=== PATIENT | female | born 1950 | race Caucasian/White ===

== ENCOUNTER 2020-02-16 08:02 | Outpatient (CLI) | payer MEDICARE, SELFPAY ==
--- NOTE | ~2020-02-16 | XR_ITS ---
EXAMINATION: XR barium swallow DATE: 02/16/2020 08:47 INDICATION: Dysphagia, unspecified. TECHNIQUE: The patient drank thick barium, gas-producing crystals, and thin barium. Fluoroscopy of th e hypopharynx and esophagus was performed. Fluoroscopy exposure time was 0.8 minutes. The total numbe r of images was 728. The dose-area product was 3.473 Gy-cm^2. COMPARISON: None. FINDINGS: There is no mass or stricture of the esophagus. There is decreased primary and secondary es ophageal peristalsis. There is no hiatal hernia. There was no gastroesophageal reflux with provocativ e maneuvers. IMPRESSION: 1. Mild esophageal dysmotility. Reviewed, dictated and finalized at location A.
== END 2020-02-16 08:03 | disposition home or self-care (01) ==
PROVIDERS: PCP Family Medicine; Visit Provider Otolaryngology
DX: R13.10 Dysphagia, unspecified (principal)
CPT/HCPCS: 74220

== ENCOUNTER 2020-03-21 10:37 | Outpatient (CLI) | payer MEDICARE, SELFPAY ==
--- NOTE | ~2020-03-21 | XR_ITS ---
EXAMINATION: XR barium swallow modified DATE: 03/21/2020 11:24 INDICATION: Dysphagia. TECHNIQUE: Modified barium esophagram was performed by myself to administered fluoroscopy, in conjun ction with speech pathologist who administered barium in varying consistencies as per speech patholog ist documentation. This was recorded on tape. A single fluoroscopic spot image was recorded. The DAP for this procedure was 1.2 Gycm2. Fluoroscopy exposure time was 1.5 minutes. FINDINGS: Oral stage: Adequate function. Pharyngeal phase: Adequate function. Laryngeal penetration: None. Aspiration: None. Laryngeal sensitivity: Present. IMPRESSION: Normal modified barium swallow. Please refer to speech pathologist findings and specific feeding recommendations. Reviewed, dictated and finalized at location A.
--- NOTE | 2020-03-21 17:26 | STOPEVAL ---
OUTPATIENT MODIFIED BARIUM SWALLOW: Thank you for referring Babita Olivarez to [facility] [place]. Attending Provider: Daljit Yoon MD Referring Provider: GM Outpatient Evaluation: KATARZYNA Start: 03/21/20 17:18 Freq: Status: Active Protocol: Document 03/21/20 11:00 BECHERERT (Rec: 03/21/20 17:25 BECHERERT [email or web address]) Therapy Assessment Status Assessment Status Assessment Status Evaluation Outpatient Past Medical History Past Medical History Source of Past Medical History Patient Neurological History Hx Epilepsy Yes Cardiovascular History Hx Cardiac Disorders No Significant History Respiratory History Hx Respiratory Disorders No Significant History Gastrointestinal History Hx Gastroesophageal Reflux Disease Yes Genitourinary History Hx Genitourinary Disorders No Significant History Musculoskeletal History Hx Musculoskeletal Disorders No Significant History Hematological History Hx Anemia Yes Endocrine History Hx Endocrine Disorders No Significant History HEENT History Hx HEENT Disorders No Significant History Integumentary History Hx Skin Disorders No Significant History Reproductive History Hx Reproductive Disorders No Significant History Psychosocial History Hx Psychiatric Disorders No Significant History Pain History History of Any Previous or Ongoing No Significant History Instance of Pain Anesthesia History Hx Anesthesia Reactions No Significant History Evaluation Information Problem Diagnosis pt c/o vocal changes after an endoscopy last year (2018) Subjective Information Pt reports being seen ENT but Query Text:As Reported By Patient/ states that she was told her Family vocal cords were WFL Pain Assessment Timing of Pain Assessment Timing of Pain Assessment Assessment Self Report Self Report Pain Level 0 Pain Scale Pain Scale Used Numeric (1 - 10) Pain Score Pain Score 0: Self Report Modified Barium Swallow Evaluation Recent Swallowing History Reports Dysphagia Its not my swallowing; its my voice Onset of Dysphagia July 2019 History of Dysphagia No Other Factors Impacting Dysphagia Laryngeal Trauma History of Pneumonia No Reported Difficult Consistencies Unable to Identify Intake Method Prior to Swallow Oral Evaluation Diet Prior to Swallow Evaluation Regular, Level 7 Liquid Consistency Prior to Swallow Thin (0) Evaluation Consistency Thin Uncontrolled 1 Other Amount cup and straw Oral Preparatory Symptoms None Oral Phase Symptoms None Pharyngeal Phase Symptoms None Severity of Vallecula
== END 2020-03-21 10:38 | disposition home or self-care (01) ==
PROVIDERS: PCP Family Medicine; Visit Provider Internal Medicine Gastroenterology
DX: R13.10 Dysphagia, unspecified (principal)
CPT/HCPCS: 92611

== ENCOUNTER 2020-03-30 13:40 | Outpatient (CLI) | payer MEDICARE, SELFPAY ==
[2020-03-30 14:53] LABS: Alanine Aminotransferase 13 U/L (4-35); Albumin Level 4.4 g/dL (3.5-5.1); Alkaline Phosphatase 130 U/L (38-126); Aspartate Amino Transferase 20 U/L (14-36); Bilirubin,Total 0.3 mg/dL (0.2-1.3); Blood Urea Nitrogen 41 mg/dL (7-17); Calcium 9.5 mg/dL (8.4-10.2); Carbon Dioxide 25 mmol/L (22-30); Chloride 103 mmol/L (98-107); Cholesterol 160 mg/dL (0-200); Estimated Glomerular Filt Rate 32; Glucose 114 mg/dL (65-105); HDL Direct 66 mg/dL; Potassium 4.9 mmol/L (3.4-5.0); Sodium 137 mmol/L (137-145); Triglycerides 109 mg/dL (<150)
[2020-03-30 14:54] LABS: Hemoglobin A1C 5.9 % (<5.7)
[2020-03-30 15:04] LABS: LDL Cholesterol Direct 72 mg/dL
[2020-03-30 15:09] LABS: Vitamin D 25 Hydroxy 57.9 ng/mL
== END 2020-03-30 13:41 | disposition home or self-care (01) ==
PROVIDERS: PCP Family Medicine; Visit Provider Internal Medicine Hematology & Oncology
DX: E03.9 Hypothyroidism, unspecified (principal); E78.2 Mixed hyperlipidemia; D63.1 Anemia in chronic kidney disease; N18.4 Chronic kidney disease, stage 4 (severe); I12.9 Hypertensive chronic kidney disease with stage 1 through stage 4 chronic kidney disease, or unspecified chronic kidney disease
CPT/HCPCS: 36415; 80053; 80061; 82306; 83036; 84443

== ENCOUNTER 2020-07-10 10:44 | Outpatient (CLI) | payer MEDICARE, SELFPAY ==
--- NOTE | ~2020-07-10 | US_ITS ---
EXAMINATION: US soft tissue head and neck DATE: 07/10/2020 11:15 INDICATION: Palpable nodule at the suprasternal notch which is only palpable in the upright position. TECHNIQUE: Multiple grayscale and Doppler ultrasound images of the region of concern at the supraster nal anterior neck were obtained. COMPARISON: None FINDINGS/IMPRESSION: No abnormal masses or fluid collections identified at the region of concern. No correlate identified for the reported palpable abnormality. Reviewed, dictated and finalized at location A.
== END 2020-07-10 10:45 | disposition home or self-care (01) ==
PROVIDERS: PCP Family Medicine; Visit Provider Internal Medicine Hematology & Oncology
DX: R22.1 Localized swelling, mass and lump, neck (principal)
CPT/HCPCS: 76536

== ENCOUNTER 2020-07-25 15:23 | Outpatient (CLI) | payer MEDICARE, SELFPAY ==
--- NOTE | ~2020-07-25 | CT_ITS ---
EXAMINATION:CT chest w con DATE: 07/25/2020 16:00 INDICATION: Dysphagia. TECHNIQUE: Computed tomography (CT) of the chest was performed with 75 mL Omnipaque 350 intravenous c ontrast. Automated exposure control and iterative reconstruction technique were employed. The dose-le ngth product (DLP) was 223.69 mGy-cm. COMPARISON: Esophagram 02/16/2020 FINDINGS: The lung volumes are small with relative mild elevation of right hemidiaphragm. There is mi ld atelectasis bilaterally. Calcified right lung nodules and calcified right hilar lymph nodes are co nsistent with old granulomatous disease. No pleural effusion. The heart size is normal. No pericardia l effusion. There is levoscoliosis of cervicothoracic spine and dextroscoliosis of thoracolumbar spin e. IMPRESSION: 1. Small lung volumes with mild atelectasis. Reviewed, dictated and finalized at location A.
[2020-07-25 15:48] LABS: Estimated Glomerular Filt Rate 37
== END 2020-07-25 15:24 | disposition home or self-care (01) ==
PROVIDERS: PCP Family Medicine; Visit Provider Internal Medicine Hematology & Oncology
DX: R13.10 Dysphagia, unspecified (principal); R91.8 Other nonspecific abnormal finding of lung field
CPT/HCPCS: 71260; Q9967

== ENCOUNTER 2020-07-31 13:29 | Outpatient (CLI) | payer MEDICARE, SELFPAY ==
--- NOTE | ~2020-07-31 | US_ITS ---
EXAMINATION: US retroperitoneal comp DATE: 07/31/2020 15:09 INDICATION: Stage IV chronic kidney disease TECHNIQUE: Multiple ultrasound grayscale images of the kidneys were obtained. COMPARISON: None. FINDINGS: The right kidney measures 9.3 x 4.8 x 6.1 cm. The left kidney measures 9.3 x 4.8 x 3.7 cm. The kidney s demonstrate normal echogenicity. There is no hydronephrosis in either kidney. No stones identified . The bladder is normal. IMPRESSION: 1. Normal kidneys without hydronephrosis. Reviewed, dictated and finalized at location B.
== END 2020-07-31 13:30 | disposition home or self-care (01) ==
PROVIDERS: PCP Family Medicine; Visit Provider Internal Medicine Nephrology
DX: N18.4 Chronic kidney disease, stage 4 (severe) (principal); D63.1 Anemia in chronic kidney disease
CPT/HCPCS: 76770

== ENCOUNTER 2020-08-03 12:33 | Outpatient (CLI) | payer MEDICARE, SELFPAY ==
[2020-08-03 16:13] LABS: Albumin Level 4.3 g/dL (3.5-5.1); Anion Gap 12 mmol/L (8-16); Blood Urea Nitrogen 34 mg/dL (7-17); Calcium 9.6 mg/dL (8.4-10.2); Carbon Dioxide 28 mmol/L (22-30); Chloride 101 mmol/L (98-107); Estimated Glomerular Filt Rate 30; Glucose 145 mg/dL (65-105); Phosphorus 3.5 mg/dL (2.5-4.5); Potassium 4.2 mmol/L (3.4-5.0); Sodium 141 mmol/L (137-145)
[2020-08-03 16:19] LABS: Complement C3 133 mg/dL (88-165)
[2020-08-08 23:26] LABS: Albumin 3.8 g/dL (3.8-4.8); Alpha 1 Globulin 0.4 g/dL (0.2-0.3); Beta 1 Globulin 0.5 g/dL (0.4-0.6); Gamma Globulin 0.9 g/dL (0.8-1.7)
[2020-08-09 10:53] LABS: ANCA Screen Negative (Negative)
[2020-08-09 13:29] LABS: Anti Glomerular Basement Memb <1.0 AI (<1.0)
[2020-08-29 17:11] LABS: Creatinine Urine 102.8 mg/dL; Total Protein Urine Random 20 mg/dL
[2020-08-29 17:12] LABS: Sodium Urine Random 103 meq/L
[2020-09-04 15:58] LABS: Chloride Rand Ur 84 mmol/L (32-290); Chloride/Creatinine Rand Ur 83 (38-318); Creatinine Random Urine 101 mg/dL (20-275)
[2020-09-06 20:51] LABS: Creatinine, Random Urine 101 mg/dL (20-275); Total Protein/Creatinine Ratio 297 mg/g creat (21-161)
== END 2020-08-03 12:34 | disposition home or self-care (01) ==
PROVIDERS: PCP Family Medicine; Visit Provider Internal Medicine Nephrology
DX: N18.4 Chronic kidney disease, stage 4 (severe) (principal); D63.1 Anemia in chronic kidney disease; I12.9 Hypertensive chronic kidney disease with stage 1 through stage 4 chronic kidney disease, or unspecified chronic kidney disease
CPT/HCPCS: 36415; 80069; 82436; 82570; 83520; 84155; 84156; 84165; 84166; 84300; 85999; 86021; 86038; 86160; 86225

== ENCOUNTER 2020-12-02 16:13 | Observation (INO) | payer MEDICARE, SELFPAY ==
[2020-12-02] VITALS (8 sets, daily range): BP systolic 131–166; BP diastolic 65–107; PULSE 96–113; RESP 14–22; TEMP 36–36.5; O2SAT 92–96
--- NOTE | ~2020-12-02 | CT_ITS ---
EXAMINATION: CT abdomen pelvis w con DATE: 12/02/2020 17:48 INDICATION: Generalized abdominal pain. Nausea and vomiting. TECHNIQUE: Computed tomography (CT) of the abdomen and pelvis was performed with 100 mL Omnipaque 350 intravenous contrast. Automated exposure control and iterative reconstruction technique were employe d. The dose-length product was 415.69 mGy-cm. COMPARISON: None. FINDINGS: The visualized portions of the lung bases demonstrate mild atelectasis. No pleural effusion . The heart size is normal. There are coronary artery calcifications. No pericardial effusion. The li doris and gallbladder are normal. Calcifications in the spleen are consistent with old granulomatous di sease. There is a gastrostomy tube in expected position. The pancreas and adrenal glands are normal. There is cortical thinning of the kidneys. There is diverticulosis of the colon without evidence of d iverticulitis. The appendix is normal. There are no pathologically enlarged lymph nodes. There is no free intraperitoneal fluid. There is lumbar levoscoliosis and severe spondylosis. IMPRESSION: 1. No etiology for the patient's symptoms. Reviewed, dictated and finalized at location A. ET [employer]
--- NOTE | 2020-12-02 16:21 | ED.NAVMDI ---
HPI - Nausea/Vomiting/Diarrhea General Chief complaint: Nausea/Vomiting/Diarrhea Stated complaint: vomiting/diarrhea/als Time Seen by Provider: 12/02/20 16:21 History of Present Illness HPI Narrative: 70 yo female w/ h/o ALS presents to the ED for nausea and vomiting. She is GI tube dependent due to ALS. For the last week she has had difficulty with tolerating feeds. She has also had copious watery diarrhea. She does report mild diffuse abdominal pain as well. Related Data Home Medications Medication Instructions Recorded Confirmed aspirin 81 mg tablet,delayed 81 mg PO DAILY 07/31/20 10/01/20 release cholecalciferol (vitamin D3) 1,250 1,250 mcg PO WEEKLY 07/31/20 10/01/20 mcg (50,000 unit) capsule cyanocobalamin (vitamin B-12) 100 100 mcg PO DAILY 07/31/20 10/01/20 mcg tablet docusate sodium 100 mg capsule 100 mg PO BID 07/31/20 10/01/20 ferrous sulfate 325 mg (65 mg 325 mg PO DAILY 07/31/20 10/01/20 iron) tablet polyethylene glycol 3350 17 17 g PO DAILY 07/31/20 10/01/20 gram/dose oral powder Allergies Allergy/AdvReac Type Severity Reaction Status Date / Time No Known Allergies Allergy Verified 12/02/20 16:19 Review of Systems Constitutional: Constitutional: Reports chills and Denies fever(s) Eyes: Eyes: Reports no additional eye complaints Cardiovascular: Cardiovascular: Denies chest pain Respiratory: Respiratory: Denies dyspnea Gastrointestinal: Gastrointestinal: Reports abdominal pain, Reports diarrhea, Reports nausea and Reports vomiting Genitourinary: Genitourinary: Denies dysuria Neurologic: Denies numbness and Reports weakness PMFSH Past Medical History Medical History (Updated 12/02/20 @ 18:46 by Frandy Nieves MD) Primary osteoarthritis, unspecified site Seasonal allergic rhinitis due to pollen Family History Family History Father Family history of glaucoma Family history of cardiovascular disease Malignant neoplasm of prostate Other Depression Social History Social History Smoking status: Never smoker Alcohol intake: current Spiritual care concerns: No Exam Const: General: no acute distress, alert and ill appearing chronically HENMT: Mouth: Yes dry mucous membranes Eyes: Pupils: Equal, round and reactive pupils present Resp: Effort & Inspection: normal respiratory effort Auscultation: clear to auscultation bilaterally Cardio: Rate: regular rate Rhythm: regular rhythm GI: Inspection: non-distended GI Palp: Yes Soft to palpation, Yes Tenderness to palpation present (GI) (mild), No Guarding due to palpation present (GI) and No Rebound tenderness present Skin: General skin exam: normal color Neuro: General: moves all extremities and CN's II-XI intact bilaterally Other: symmetrical weakness of all extremities. Stable gait Extrem: General: no edema Course Vital Signs Vital signs: Vital Signs Temperature 36.5 C 12/02/20 16:16 Pulse Rate 105 H 12/02/20 16:16 Respiratory Rate 18 12/02/20 16:16 Blood Pressure 131/75 12/02/20 16:16 Pulse Oximetry 95 12/02/20 16:16 Temperature 36.5 C 12/02/20 16:16 Pulse Rate 100 12/02/20 18:22 Respiratory Rate 22 H 12/02/20 18:22 Blood Pressure 166/107 H 12/02/20 18:22 Pulse Oximetry 93 12/02/20 18:22 MDM - Nausea/Vomiting/Diarrhea Differential Diagnosis Differential diagnosis: Likely gastroenteritis and other (SBO, UTI, colitis, COVID-19, constipation) Medical Records Attestation: I reviewed the patient's medical records. Lab Data Attestation: I reviewed the patient's lab results. Result diagrams: 12/02/20 16:49 12/02/20 16:49 Labs: Lab Results 12/02/20 12/02/20 12/02/20 Range/Units 16:40 16:49 16:49 WBC 7.9 (4.5-10.0) K/mm3 RBC 3.95 L (4.2-5.4) M/mm3 Hgb 13.0 (12.0-15.0) g/dL Hct 39.5 (37.0-47.0) % MCV
[2020-12-02] MEDS: ONDANSETRON INJ 4 MG/2 ML VIAL IV PUSH ×2 (16:45→21:31)
[2020-12-02] MEDS: SODIUM CHLORIDE 0.9% IV 500 ML 999 ML IV CONT (16:45)
[2020-12-02 16:57] LABS: Basophils Absolute Auto 0.1 K/mm3 (0.0-0.1); Eosinophils Percent Auto 0.5 % (0-4.4); Hematocrit 39.5 % (37.0-47.0); Immature Granulocyte Absolute 0.02 K/mm3 (0.00-0.031); Immature Granulocyte Percent A 0.3 % (0-0.5); Lymphocytes Absolute Auto 1.51 K/mm3 (0.9-3.2); Mean Corpuscular HGB Conc 32.9 g/dl (32-36); Mean Corpuscular Hemoglobin 32.9 pg (26-34); Mean Platelet Volume 9.4 fl (7.4-10.4); Monocytes Absolute Auto 0.6 K/mm3 (0.1-0.6); Monocytes Percent Auto 7.3 % (2.6-8.5); Neutrophils Absolute Auto 5.7 K/mm3 (1.3-6.7); Neutrophils Percent Auto 71.9 % (45.5-73.1); Platelet Count Result 326 k/mm3 (150-375); Red Blood Count 3.95 M/mm3 (4.2-5.4); Red Cell Distribution Width 12.2 % (11.5-14.5); White Blood Count 7.9 K/mm3 (4.5-10.0)
[2020-12-02 17:09] LABS: Add Urine Microscopic? YES; Appearance Urine Cloudy (Clear); Bacteria Urine 4+ /hpf; Bilirubin Urine Negative (Negative); Color Urine Yellow (Yellow); Glucose Urine UA Negative (Negative); Hyaline Casts Urine 30-49 /lpf; Ketones Urine Negative (Negative); Leukocyte Esterase Ur 3+ LEU/UL (Negative); Mucus Urine Few /lpf; Nitrate Urine Positive (Negative); Protein Urine 1+ mg/dL (Negative); Specific Grav Ur 1.021 (1.001-1.035); Squamous Epithelial Cell Urine Many /hpf (Few); WBC Urine 31-50 /hpf
[2020-12-02 17:10] LABS: Alanine Aminotransferase 17 U/L (4-35); Albumin Level 4.2 g/dL (3.5-5.1); Alkaline Phosphatase 114 U/L (38-126); Aspartate Amino Transferase 29 U/L (14-36); Bilirubin,Total 0.6 mg/dL (0.2-1.3); Blood Urea Nitrogen 43 mg/dL (7-17); Calcium 9.7 mg/dL (8.4-10.2); Carbon Dioxide > 40 mmol/L (22-30); Chloride 87 mmol/L (98-107); Estimated CRCL calculation 25 ml/min; Estimated Glomerular Filt Rate 30; Glucose 124 mg/dL (65-105); Lipase 252 U/L (23-300); Potassium 2.5 mmol/L (3.4-5.0); Sodium 138 mmol/L (137-145)
[2020-12-02 17:20] LABS: Blood Urine Negative (Negative)
[2020-12-02 17:58] LABS: Magnesium 2.2 mg/dL (1.6-2.3)
--- NOTE | 2020-12-02 20:35 | ADMGEN ---
This patient, Babita Olivarez, was admitted to Medical Room 341-01. Patient/family oriented to hospital policies and general routines including ID bracelet, bed and alarms, visiting hours, pain management, procedures, bathroom and other care routines, personal items, smoking policy, room service/diet, and visiting hours. Information on how to activate the Rapid Response Team has been discussed. Patient/Family are encouraged to report perceived risks to care and to ask questions if they do not understand what they are told or what they should do.
[2020-12-02] MEDS: LACTATED RINGERS 1,000 ML 125 ML IV CONT (23:06)
[2020-12-03] VITALS (12 sets, daily range): BP systolic 118–132; BP diastolic 66–78; PULSE 68–102; RESP 14–18; TEMP 35.8–36.7; O2SAT 93–100; BMI 28.2
[2020-12-03] MEDS: levETIRAcetam 500 MG TABLET XX ×3 (00:46→21:19)
[2020-12-03 00:47] LABS: Blood Urea Nitrogen 40 mg/dL (7-17); Calcium 8.2 mg/dL (8.4-10.2); Carbon Dioxide > 40 mmol/L (22-30); Chloride 90 mmol/L (98-107); Estimated CRCL calculation 30 ml/min; Estimated Glomerular Filt Rate 37; Glucose 111 mg/dL (65-105); Magnesium 2.1 mg/dL (1.6-2.3); Potassium 2.9 mmol/L (3.4-5.0); Sodium 137 mmol/L (137-145)
[2020-12-03] MEDS: ONDANSETRON INJ 4 MG/2 ML VIAL IV PUSH ×2 (06:04→21:19)
[2020-12-03] MEDS: SERTRALINE HCL 50 MG TABLET FEED TUBE (08:16)
[2020-12-03 08:44] LABS: Basophils Absolute Auto 0.1 K/mm3 (0.0-0.1); Basophils Percent Auto 0.8 % (0.2-1.2); Eosinophils Absolute Auto 0.1 K/mm3 (0-0.3); Eosinophils Percent Auto 1.6 % (0-4.4); Hematocrit 33.4 % (37.0-47.0); Hemoglobin 10.8 g/dL (12.0-15.0); Immature Granulocyte Absolute 0.02 K/mm3 (0.00-0.031); Immature Granulocyte Percent A 0.3 % (0-0.5); Lymphocytes Percent Auto 25.9 % (18.3-44.2); Mean Corpuscular HGB Conc 32.3 g/dl (32-36); Mean Corpuscular Volume 99.1 fl (80-100); Mean Platelet Volume 9.6 fl (7.4-10.4); Monocytes Absolute Auto 0.5 K/mm3 (0.1-0.6); Monocytes Percent Auto 6.9 % (2.6-8.5); Neutrophils Percent Auto 64.5 % (45.5-73.1); Platelet Count Result 290 k/mm3 (150-375); Red Blood Count 3.37 M/mm3 (4.2-5.4); Red Cell Distribution Width 12.5 % (11.5-14.5); White Blood Count 7.7 K/mm3 (4.5-10.0)
[2020-12-03 08:55] LABS: Blood Urea Nitrogen 33 mg/dL (7-17); Calcium 8.6 mg/dL (8.4-10.2); Carbon Dioxide > 40 mmol/L (22-30); Chloride 92 mmol/L (98-107); Estimated CRCL calculation 32 ml/min; Estimated Glomerular Filt Rate 40; Glucose 110 mg/dL (65-105); Potassium 3.2 mmol/L (3.4-5.0); Sodium 136 mmol/L (137-145)
[2020-12-03 09:03] LABS: Hemoglobin A1C 5.5 % (<5.7)
--- NOTE | 2020-12-03 12:25 | PM.IMHP ---
H&P: HPI History of Present Illness Date/Time: 12/03/20 12:25 Chief Complaint: N/V/D x 1 week Narrative: Babita Olivarez is a 70 year old female with recent diagnosis of ALS (has g-tube since 10/2020), CKDIV, anemia of chronic disease, HTN (no longer taking medication), hypothyroidism (no longer taking medication) among other comorbid conditions who presented to the ED from home on 12/02 with complaints of nausea,vomiting, and diarrhea for 1 week. Patient has ALS and has difficulty communicating thus most information is obtained through daughter, Tiffanie, who is at bedside at time of visit. Tiffanie tells me her symptoms started roughly 1 week ago to where she was having diarrhea with loose and frequent BMs with mucous in stool. As this continued she began developing nausea and vomiting with bile or musous-like material; nonbloody and no coffee ground emesis, nor any blood in stool, black/tarry stool. She had associated chills and diffuse abdominal cramping. These symptoms persisted throughout the week to a point she was not tolerating her tube feeds any longer, thus prompted them to present to the ED. Of note, she received the first injection of the COVID vaccine just before symptoms started. No other changes in medication in the past couple weeks, or changes in diet, nor any other sick contacts at home with similar symptoms. No recent travel. While in the ED, CT abd/pelvis showed no findings that correlate to etiology of patient's symptoms. Serum potassium was low at 2.5 and replaced with IV potassium chloride. VS were relative stable with mild tachycardia felt to be related to patient's symptoms. UA was suggestive of UTI and was started on IV Rocephin, although she denies any urinary symptoms. She was admitted under setting of persistent n/v/d and acute hypokalemia likely related to above symptoms and poor PO intake. Today, patient notes that her symptoms have improved significantly with last BM prior to being admitted and mild nausea without episode of vomiting. She is hesitant to resume her tube feeds today. No other complaints at the moment. Denies current subjective f/c/s, myalgias/arthralgias, headaches, dizziness, lightheadedness, cp/palpitations, sob/cough, current abd pain, dysuria, hematuria, cloudy urine, calf pain/swelling. Review of Systems Review of Systems: All systems reviewed & are unremarkable except as noted in HPI and below PMFSH Past Medical History Medical History (Updated 12/03/20 @ 13:14 by Joey De Jesus PA-C) ALS (amyotrophic lateral sclerosis) Anemia due to chronic renal failure treated with erythropoietin, stage 4 (severe) Anxiety disorder Chronic renal failure, stage 4 (severe) Essential hypertension Hypothyroidism (acquired) Mixed hyperlipidemia Morbid (severe) obesity due to excess calories Prediabetes Primary osteoarthritis, unspecified site Seasonal allergic rhinitis due to pollen Seizure disorder Surgical History Surgical History (Updated 12/03/20 @ 12:38 by Joey De Jesus PA-C) History of right knee joint replacement S/P percutaneous endoscopic gastrostomy (PEG) tube placement Family History Family History Father Family history of glaucoma Family history of cardiovascular disease Malignant neoplasm of prostate Other Depression Social History Social History Social History: Patient lives with and daughter, Tiffanie. She wishes to be a DNR. Her PCP is Dr. Sandrita De Jesus Smoking status: Never smoker Second hand tobacco smoke exposure: Yes Alcohol intake: never Substance use: never Substance use type: does not use Gender identity (if verbalized by the patient): Female Sexual Orientation (if Verbalized by the Patient): Straight or Heterosexual Spiritual care concerns: No Meds Home Medications and Allergies Home Medications Medication Instructions Recor
--- NOTE | 2020-12-03 13:04 | PCNSR ---
On 12/03/20, the student, Laquita Castle, provided care and completed [facility] documentation on this patient. I have reviewed the student's documentation and agree with the findings.
[2020-12-03] MEDS: LACTATED RINGERS 1,000 ML 75 ML IV CONT (14:20)
--- NOTE | 2020-12-03 15:10 | PHAR ---
PT'S HOME MED RILUZONE 50 MG TABS VERIFIED BY PHARMACY
[2020-12-04] VITALS (9 sets, daily range): BP systolic 124–135; BP diastolic 67–79; PULSE 79–108; RESP 16–18; TEMP 36.1–36.2; O2SAT 90–99
[2020-12-04] MEDS: LACTATED RINGERS 1,000 ML 75 ML IV CONT ×2 (03:54→08:07)
[2020-12-04 06:12] LABS: Blood Urea Nitrogen 24 mg/dL (7-17); Calcium 8.9 mg/dL (8.4-10.2); Carbon Dioxide > 40 mmol/L (22-30); Chloride 92 mmol/L (98-107); Estimated CRCL calculation 34 ml/min; Estimated Glomerular Filt Rate 44; Glucose 130 mg/dL (65-105); Magnesium 1.8 mg/dL (1.6-2.3); Potassium 3.5 mmol/L (3.4-5.0); Sodium 136 mmol/L (137-145)
[2020-12-04] MEDS: ONDANSETRON INJ 4 MG/2 ML VIAL IV PUSH (06:40)
[2020-12-04] MEDS: SERTRALINE HCL 50 MG TABLET FEED TUBE (08:09)
[2020-12-04] MEDS: levETIRAcetam 500 MG TABLET XX (08:09)
--- NOTE | 2020-12-04 11:07 | PCNFU ---
Nutrition Follow-Up Complete: Altered GI function related to colitis as evidenced by nausea and vomiting when starting tube feedings. Goal: Patient to meet estimated nutritional needs and tolerate tube feeding. Patient is progressing towards goal. We will continue current goal. Pt current nutrition is Jevity 1.5 at 35 ml/hr. Nutrition recommendation: Jevity 1.5 at 45 ml/hr Last recorded weight is 67.8 kg. Bowel Motility:+BM reported 12/02 Labs Reviewed:Glu 130,BUN 24,Cr 1.2,Na 136. Meds Noted:LR, Zofran,Keppra, Zoloft. Additional Notes: Nutrition follow up today. Patient currently tolerated Jevity 1.5 currently at 35 ml/hr with plans to advance patient to goal rate of 45 ml/hr which will provide patient with 1485 calories, 63 grams of protein, and 752 ml of water. Na 136-30 ml water flush q 4 hours at this time. Recommend increasing flush to at least 100 ml q 4 hours when sodium level normalizes. Monitoring:labs, medications, weight, and tube feeding every Thursday and Thursday.
--- NOTE | 2020-12-04 14:17 | PC.NURSE ---
Supervision care provided and reviewed documentation by DONAL Student Nurse Ayaka Sousa
--- NOTE | 2020-12-04 16:17 | PM.DS ---
DS: Admitting Diagnosis Admitting Diagnosis Admitting Diagnosis: N/V/D DS: Discharge Diagnosis Discharge Diagnosis (1) Acute hypokalemia: Code(s): E87.6 - Hypokalemia Status: Acute Assessment and Plan: K on arrival 2.5, now up to 3.5 this morning. Likely secondary to symptoms and poor PO intake. These have improved and patient plans to possibly advance her diet today, as well. Potassium is stable today. She is getting her tube feedings without any issues. (2) Nausea vomiting and diarrhea: Code(s): R11.2 - Nausea with vomiting, unspecified; R19.7 - Diarrhea, unspecified Status: Acute Assessment and Plan: Likely viral gastroenteritis vs possible reaction to COVID vaccination vs other. CT abd/pelvis grossly unremarkable. Symptoms appear to be resolving and patient feeling better today, although still hesitant to state her feeds this morning. Diarrhea has improved as well. Patient is feeling much better today. No more nausea, vomiting, diarrhea. Her stools are becoming less frequent but still soft in nature. She is chronically on tube feeding severe now up to 45 cc/hr which is equivalent to what she takes at home. She is not having any issues and is stable for discharge. She states she does have antinausea pills at home she can take if she has any more issues. (3) Abnormal urinalysis: Code(s): R82.90 - Unspecified abnormal findings in urine Status: Acute Assessment and Plan: UA suggestive of UTI although patient is asymptomatic. Started on IV Rocephin in ED. Given history of ALS it may be prudent to continue treatment until cultures return Patient's urine came back with E coli growth. Will continue with cefdinir for 6 more days that can be given through her G-tube. (4) Seizure disorder: Code(s): G40.909 - Epilepsy, unspecified, not intractable, without status epilepticus Status: Acute Assessment and Plan: No acute issues Continue home Keppra (5) Anxiety disorder: Code(s): F41.9 - Anxiety disorder, unspecified Status: Acute Assessment and Plan: No acute issues Continue home sertraline (6) Anemia due to chronic renal failure treated with erythropoietin, stage 4 (severe): Code(s): N18.4 - Chronic kidney disease, stage 4 (severe); D63.1 - Anemia in chronic kidney disease Status: Acute Assessment and Plan: H&H relatively stable and appears to be at baseline. No s/sx of acute blood loss (7) Hypothyroidism (acquired): Code(s): E03.9 - Hypothyroidism, unspecified Status: Acute Assessment and Plan: TSH wnl. Patient no longer takes any medications (8) Essential hypertension: Code(s): I10 - Essential (primary) hypertension Status: Acute Assessment and Plan: Patient no longer takes lisinopril. BP 124/67. Stable. (9) Mixed hyperlipidemia: Code(s): E78.2 - Mixed hyperlipidemia Status: Acute Assessment and Plan: Patient no longer takes statin (10) Chronic renal failure, stage 4 (severe): Code(s): N18.4 - Chronic kidney disease, stage 4 (severe) Status: Acute Assessment and Plan: Cr 1.20; appears at baseline (11) Prediabetes: Code(s): R73.03 - Prediabetes Status: Acute Assessment and Plan: A1c 5.5. Does not take medications DS: Summary Hospital Course Reason for hospitalization: Babita Olivarez is a 70 year old female with recent diagnosis of ALS (has g-tube since 10/2020), CKD IV, anemia of chronic disease, HTN (no
== END 2020-12-04 17:55 | disposition home or self-care (01) ==
LOC: ANHED 18:46 → ANH3MED 19:34
PROVIDERS: Nurse Practitioner; Physician Assistant; Admitting Provider Internal Medicine; Emergency Provider Emergency Medicine; PCP Family Medicine; Visit Provider Physician Assistant
DX: E87.6 Hypokalemia (principal); R11.2 Nausea with vomiting, unspecified; R82.90 Unspecified abnormal findings in urine; D63.1 Anemia in chronic kidney disease; E78.2 Mixed hyperlipidemia; E03.9 Hypothyroidism, unspecified; F41.9 Anxiety disorder, unspecified; G40.909 Epilepsy, unspecified, not intractable, without status epilepticus; I12.9 Hypertensive chronic kidney disease with stage 1 through stage 4 chronic kidney disease, or unspecified chronic kidney disease; N18.4 Chronic kidney disease, stage 4 (severe); R73.03 Prediabetes; Z93.1 Gastrostomy status; Z96.651 Presence of right artificial knee joint
CPT/HCPCS: 36415; 74177; 80048; 80053; 81001; 83036; 83690; 83735; 84443; 85025; 87077; 87086; 87088; 87186; 96361; 96365; 96366; 96368; 96375; 96376; 97110; 97161; 97165; 97530; 99285; A9270; G0378; J0696; J2405; J3480; J7040; J7120; Q9967

== ENCOUNTER 2020-12-31 18:47 | Observation (INO) | payer MEDICARE, SELFPAY ==
--- NOTE | ~2020-12-31 | XR_ITS ---
EXAMINATION: XR chest 1V portable DATE: 01/01/2021 06:10 INDICATION: Desaturation TECHNIQUE: frontal view of the chest was obtained. COMPARISON: Chest CT dated 07/25/[address] abdomen and pelvis dated 12/31/2020 FINDINGS: Small lung volumes. Opacities of the bilateral lung with appearance favoring atelectasis over pneumon ia on prior CT. No pneumothorax or pleural effusion. The cardiomediastinal silhouette is normal. Mode rate thoracolumbar spondylosis. IMPRESSION: 1. Small lung volumes with bibasilar atelectasis. Reviewed, dictated and finalized at location A.
--- NOTE | ~2020-12-31 | CT_ITS ---
EXAMINATION: CT abdomen pelvis w con DATE: 12/31/2020 22:56 INDICATION: Nausea and vomiting. TECHNIQUE: Computed tomography (CT) of the abdomen and pelvis was performed with 100 mL Omnipaque 350 intravenous contrast. Automated exposure control and iterative reconstruction technique were employe d. The dose-length product was 302.92 mGy-cm. COMPARISON: CT abdomen and pelvis 12/02/2020 FINDINGS: The visualized portions of the lung bases demonstrate mild atelectasis. No pleural effusion . The heart size is normal. No pericardial effusion. The liver, gallbladder, spleen, pancreas, and ad renal glands are normal. There is cortical thinning of the kidneys. There is diverticulosis of the co adrian without evidence of diverticulitis. There are no dilated loops of bowel. There is a gastrostomy t ube in expected position. The appendix is normal. There are no pathologically enlarged lymph nodes. T here is no free intraperitoneal fluid. There is lumbar levoscoliosis and severe spondylosis. IMPRESSION: 1. No etiology for the patient's symptoms. Reviewed, dictated and finalized at location A.
--- NOTE | ~2020-12-31 | XR_ITS ---
EXAMINATION: XR chest 1V portable DATE: 01/02/2021 23:23 INDICATION: Chest pain. TECHNIQUE: A single frontal view of the chest was obtained. COMPARISON: Chest single view 01/01/2021, CT abdomen and pelvis 12/31/2020 FINDINGS: The lung volumes are small. There are airspace opacities at the lung bases. No pleural effu alecia or pneumothorax. The heart size is normal. IMPRESSION: 1. Small lung volumes with airspace opacities at the lung bases with worsening on the left, consisten t with atelectasis versus pneumonia. Reviewed, dictated and finalized at location A. IMPRESSION: 1. Small lung volumes with airspace opacities at the lung bases with worsening on the left, consistent with atelectasis versus pneumonia.
[2020-12-31 19:02] VITALS: BP 100/67; PULSE 120; RESP 16; TEMP 36.1; O2SAT 94
[2020-12-31 19:19] LABS: Basophils Absolute Auto 0.1 K/mm3 (0.0-0.1); Basophils Percent Auto 0.5 % (0.2-1.2); Eosinophils Absolute Auto 0.1 K/mm3 (0-0.3); Eosinophils Percent Auto 0.5 % (0-4.4); Hematocrit 40.2 % (37.0-47.0); Hemoglobin 13.6 g/dL (12.0-15.0); Immature Granulocyte Absolute 0.03 K/mm3 (0.00-0.031); Immature Granulocyte Percent A 0.3 % (0-0.5); Lymphocytes Percent Auto 17.2 % (18.3-44.2); Mean Corpuscular HGB Conc 33.8 g/dl (32-36); Mean Corpuscular Hemoglobin 33.1 pg (26-34); Mean Corpuscular Volume 97.8 fl (80-100); Mean Platelet Volume 9.6 fl (7.4-10.4); Monocytes Absolute Auto 0.7 K/mm3 (0.1-0.6); Monocytes Percent Auto 6.8 % (2.6-8.5); Neutrophils Absolute Auto 7.8 K/mm3 (1.3-6.7); Neutrophils Percent Auto 74.7 % (45.5-73.1); Platelet Count Result 344 k/mm3 (150-375); Red Blood Count 4.11 M/mm3 (4.2-5.4); Red Cell Distribution Width 12.3 % (11.5-14.5); White Blood Count 10.5 K/mm3 (4.5-10.0)
[2020-12-31 19:33] LABS: Alanine Aminotransferase 21 U/L (4-35); Alkaline Phosphatase 112 U/L (38-126); Aspartate Amino Transferase 32 U/L (14-36); Bilirubin,Total 0.5 mg/dL (0.2-1.3); Blood Urea Nitrogen 33 mg/dL (7-17); Calcium 9.4 mg/dL (8.4-10.2); Carbon Dioxide > 40 mmol/L (22-30); Chloride 82 mmol/L (98-107); Estimated CRCL calculation 29 ml/min; Estimated Glomerular Filt Rate 37; Glucose 124 mg/dL (65-105); Lipase 189 U/L (23-300); Potassium 2.8 mmol/L (3.4-5.0); Sodium 134 mmol/L (137-145)
[2020-12-31 22:22] VITALS: BP 142/83; PULSE 102; RESP 18; O2SAT 94
--- NOTE | 2020-12-31 22:53 | ED.GENADULT ---
HPI - General Adult General Chief complaint: Nausea/Vomiting/Diarrhea Stated complaint: N/V Time Seen by Provider: 12/31/20 22:37 Source: patient, family and RN notes reviewed Mode of arrival: ambulatory Limitations: no limitations History of Present Illness HPI narrative: Patient is 70 years old white female presents with nausea and frequent vomiting since yesterday. Patient has feeding tube since October 2020 with 100% feeding through the tube, history of ALS diagnosed September 2020. Patient denies any fever, chills, abdominal pain. Patient is nonverbal, able to walk without assistant attorney general Related Data Home Medications Medication Instructions Recorded Confirmed hydrochlorothiazide 25 mg FEEDING TUBE DAILY 12/02/20 12/02/20 riluzole 50 mg FEEDING TUBE BID 12/02/20 12/02/20 ondansetron 4 mg disintegrating 4 mg PO Q8H 12/25/20 tablet Allergies Allergy/AdvReac Type Severity Reaction Status Date / Time No Known Allergies Allergy Verified 12/02/20 20:59 Review of Systems Review of Systems: Narrative: CONSTITUTIONAL: Denies fever, chills, or sweats. EYES: Denies visual changes, redness, or discharge. ENT: Denies rhinorrhea, congestion, sore throat, or otalgia. CARDIOVASCULAR: Denies chest pain, palpitations, or edema. RESPIRATORY: Denies cough or dyspnea. GASTROINTESTINAL: Denies abdominal pain, nausea, vomiting, or diarrhea. GENITOURINARY: Denies dysuria or hematuria. SKIN: Denies rash or itching. MUSCULOSKELETAL: Denies back pain, joint pain, or myalgia. NEUROLOGIC: Denies headache, numbness, or weakness. PSYCHIATRIC: Denies anxiety or depression. [facility] Past Medical History Medical History ALS (amyotrophic lateral sclerosis) GI tube dependent due to ALS. Anemia due to chronic renal failure treated with erythropoietin, stage 4 (severe) Anxiety disorder Chronic renal failure, stage 4 (severe) Essential hypertension Hypothyroidism (acquired) Mixed hyperlipidemia Morbid (severe) obesity due to excess calories Prediabetes Primary osteoarthritis, unspecified site Seasonal allergic rhinitis due to pollen Seizure disorder Surgical History Surgical History History of right knee joint replacement S/P percutaneous endoscopic gastrostomy (PEG) tube placement Family History Family History Father Family history of glaucoma Family history of cardiovascular disease Malignant neoplasm of prostate Other Depression Social History Social History Social History: Patient lives with and daughter, Tiffanie. She wishes to be a DNR. Her PCP is Dr. Sandrita De Jesus Smoking status: Never smoker Second hand tobacco smoke exposure: Yes Alcohol intake: never Substance use: never Substance use type: does not use Gender identity (if verbalized by the patient): Female Spiritual care concerns: No Exam Narrative: Exam Narrative: General appearance: Well-developed, well-nourished Skin: Normal color Head: Normocephalic, nontraumatic Eyes: Clear conjunctiva ENT: Oropharynx normal, ears normal, nose normal Neck: Supple, nontender Chest and respiratory: Airway patent, no respiratory distress, no accessory muscle use Heart: Regular rate/rhythm Abdomen: Soft, nontender, no organomegaly, quiet bowel sounds, feeding tube in place Vascular: Normal peripheral pulses, normal capillary refill. Musculoskeletal: Normal range of motion, nontender back Neurologic: Alert, nonverbal Course Course Emergency Course: Stable Vital Signs Vi
--- NOTE | 2020-12-31 23:10 | PC.NURSE ---
Patient resting/daughter at bedside. Report received-assumed care of patient
[2020-12-31] MEDS: SODIUM CHLORIDE 0.9% IV 1,000 ML 999 ML IV CONT (23:24)
[2020-12-31] MEDS: ONDANSETRON INJ 4 MG/2 ML VIAL IV PUSH ×2 (23:24)
[2020-12-31 23:43] VITALS: BP 155/97; PULSE 108; RESP 28; O2SAT 94
[2021-01-01] VITALS (20 sets, daily range): BP systolic 113–143; BP diastolic 69–94; PULSE 79–108; RESP 16–29; TEMP 36.2–36.6; O2SAT 90–100; BMI 26.0
--- NOTE | 2021-01-01 00:19 | ECG_ITS ---
Measurements Intervals [place] Rate: 98 P: 31 AR: 134 QRS: -12 QRSD: 101 T: 14 QT: 373 QTc: 476 Interpretive Statements SINUS RHYTHM POOR R WAVE PROGRESSION, ANTERIOR LEADS BORDERLINE ST-T WAVE ABNORMALITY- DIFFUSE LEADS BASELINE ARTIFACT- I, II, III, AVR, AVL, AVF BORDERLINE ECG Electronically Signed On 01-01-2021 7:10:21 CDT by Hayden Ramirez D.O.
[2021-01-01] MEDS: LORazepam INJ (*CRX) 2 MG/ML VIAL 1 MG IV PUSH (00:40)
[2021-01-01 01:17] LABS: Add Urine Microscopic? YES; Appearance Urine Cloudy (Clear); Bacteria Urine Trace /hpf; Bilirubin Urine Negative (Negative); Color Urine Yellow (Yellow); Glucose Urine UA Negative (Negative); Ketones Urine Negative (Negative); Leukocyte Esterase Ur 1+ LEU/UL (Negative); Mucus Urine Rare /lpf; Nitrate Urine Negative (Negative); Protein Urine 1+ mg/dL (Negative); Squamous Epithelial Cell Urine Many /hpf (Few); Urobilinogen Urine Negative mg/dL (<2.0)
[2021-01-01 01:18] LABS: Blood Urine Negative (Negative)
[2021-01-01] MEDS: POTASSIUM CHLORIDE 20 MEQ PACKET (FOR LIQUID) 40 MEQ FEED TUBE (02:46)
--- NOTE | 2021-01-01 03:23 | ADMGEN ---
This patient, Babita Olivarez, was admitted to Medical Room 247-. Patient/family oriented to hospital policies and general routines including ID bracelet, bed and alarms, visiting hours, pain management, procedures, bathroom and other care routines, personal items, smoking policy, room service/diet, and visiting hours. Information on how to activate the Rapid Response Team has been discussed. Patient/Family are encouraged to report perceived risks to care and to ask questions if they do not understand what they are told or what they should do.
[2021-01-01] MEDS: SODIUM CHLORIDE 0.9% IV 1,000 ML 125 ML IV CONT (09:38)
[2021-01-01] MEDS: levETIRAcetam ORAL SOL 500 MG/5 ML UDC FEED TUBE ×2 (09:59→20:44)
[2021-01-01] MEDS: SERTRALINE HCL 50 MG TABLET FEED TUBE (09:59)
[2021-01-01 11:25] LABS: Blood Urea Nitrogen 29 mg/dL (7-17); Calcium 8.4 mg/dL (8.4-10.2); Carbon Dioxide > 40 mmol/L (22-30); Chloride 91 mmol/L (98-107); Estimated CRCL calculation 36 ml/min; Estimated Glomerular Filt Rate 49; Glucose 151 mg/dL (65-105); Magnesium 1.9 mg/dL (1.6-2.3); Potassium 3.4 mmol/L (3.4-5.0); Sodium 134 mmol/L (137-145)
--- NOTE | 2021-01-01 14:19 | PM.IMHP ---
H&P: HPI History of Present Illness Date/Time: 01/01/21 14:19 Chief Complaint: Nausea and vomiting Narrative: Patient is a 70-year-old female who has a past medical history of ALS and depression on tube feedings who presented emergency room for nausea and vomiting. The patient is able to answer yes or no questions but is pretty tired from not sleeping the night before. Her daughter was briefly at bedside who was able to answer some questions of mine. Patient states that she started having nausea and vomiting about 2 days ago. She had some abdominal pain with this but had no diarrhea. She has not been able to tolerate her tube feeds which led her to come into the hospital. At this time, she has no abdominal pain and has not had any more nausea or vomiting. The patient denies chest pain, shortness of breath, fevers, chills, weakness, headaches, cough, or diarrhea. Daughter at bedside states that she is unsure how to check residuals and would like education on that. Review of Systems Review of Systems: All systems reviewed & are unremarkable except as noted in HPI and below PMFSH Past Medical History Medical History ALS (amyotrophic lateral sclerosis) GI tube dependent due to ALS. Anemia due to chronic renal failure treated with erythropoietin, stage 4 (severe) Anxiety disorder Chronic renal failure, stage 4 (severe) Essential hypertension Hypothyroidism (acquired) Mixed hyperlipidemia Morbid (severe) obesity due to excess calories Prediabetes Primary osteoarthritis, unspecified site Seasonal allergic rhinitis due to pollen Seizure disorder Surgical History Surgical History History of right knee joint replacement S/P percutaneous endoscopic gastrostomy (PEG) tube placement Family History Family History Father Family history of glaucoma Family history of cardiovascular disease Malignant neoplasm of prostate Other Depression Social History Social History (Updated 01/01/21 @ 14:42 by Naima Jose PA-C) Social History: Patient lives with daughter, Tiffanie. She wishes to be a DNR. Her PCP is Dr. Sandrita De Jesus Smoking status: Never smoker Second hand tobacco smoke exposure: Yes Alcohol intake: never Substance use: never Substance use type: does not use Gender identity (if verbalized by the patient): Female Spiritual care concerns: No Meds Home Medications and Allergies Home Medications Medication Instructions Recorded Confirmed Type levetiracetam 500 mg tablet 500 mg PO Q12H #180 tablet 08/13/20 01/01/21 Rx sertraline 50 mg tablet 50 mg PO DAILY #90 tablet 08/21/20 01/01/21 Rx hydrochlorothiazide 25 mg FEEDING TUBE DAILY 12/02/20 01/01/21 History riluzole 50 mg FEEDING TUBE BID 12/02/20 01/01/21 History ondansetron 4 mg disintegrating 4 mg PO Q8H PRN 12/25/20 01/01/21 History tablet atropine 2 drp PO QID PRN 01/01/21 01/01/21 History Allergies Allergy/AdvReac Type Severity Reaction Status Date / Time No Known Allergies Allergy Verified 01/01/21 03:18 Vital Signs Vital Signs - 24 hr 12/31/20 19:02 12/31/20 22:22 12/31/20 23:43 Temperature 97 F L Pulse Rate 120 H 102 H 108 H Respiratory Rate 16 18 28 H Blood Pressure 100/67 142/83 H 155/97 H Pulse Oximetry 94 94 94 01/01/21 00:02 01/01/21 01:30 01/01/21 02:18 Temperature Pulse Rate 108 H 95 94 Respiratory Rate 29 H 20 19 Blood Pressure 142/94 H 131/78 Pulse Oximetry 94 91 91 01/01/21 02:36 01/01/21 02:45 01/01/21 03:23 Temperature 97.9 F Pulse Rate 91 96 Respiratory Rate 18 16 Blood Pressure 129/82 113/72 Pulse Oximetry 90 96 90 01/01/21 04:00 01/01/21 04:56 01/01/21 04:59 Temperature 97.9 F Pulse Rate 88 88 Respiratory Rate 18 Blood Pressure 143/81 H Pulse Oximetry 96 100 01/01/21 06:00 01/01/21
--- NOTE | 2021-01-01 14:25 | PHAR ---
HOME MED Riluzole 50 mg tablet HAS BEEN VERIFIED.
[2021-01-01] MEDS: POTASSIUM CHLORIDE 20 MEQ PACKET (FOR LIQUID) PO (16:36)
[2021-01-01] MEDS: ONDANSETRON INJ 4 MG/2 ML VIAL IV PUSH ×2 (17:12→22:31)
[2021-01-01] MEDS: SODIUM CHLORIDE 0.9% IV 1,000 ML 60 ML IV CONT (20:44)
[2021-01-02] VITALS (11 sets, daily range): BP systolic 117–122; BP diastolic 71–75; PULSE 92–128; RESP 11–26; TEMP 36.2–36.9; O2SAT 89–98
[2021-01-02 05:52] LABS: Hematocrit 30.7 % (37.0-47.0); Hemoglobin 9.8 g/dL (12.0-15.0); Mean Corpuscular HGB Conc 31.9 g/dl (32-36); Mean Corpuscular Hemoglobin 31.9 pg (26-34); Mean Platelet Volume 9.7 fl (7.4-10.4); Platelet Count Result 254 k/mm3 (150-375); Red Blood Count 3.07 M/mm3 (4.2-5.4); Red Cell Distribution Width 12.8 % (11.5-14.5)
[2021-01-02 06:13] LABS: Blood Urea Nitrogen 22 mg/dL (7-17); Calcium 7.9 mg/dL (8.4-10.2); Carbon Dioxide > 40 mmol/L (22-30); Chloride 97 mmol/L (98-107); Estimated CRCL calculation 39 ml/min; Estimated Glomerular Filt Rate 55; Glucose 101 mg/dL (65-105); Magnesium 1.9 mg/dL (1.6-2.3); Phosphorus 3.4 mg/dL (2.5-4.5); Potassium 3.2 mmol/L (3.4-5.0); Sodium 137 mmol/L (137-145)
[2021-01-02] MEDS: levETIRAcetam ORAL SOL 500 MG/5 ML UDC FEED TUBE ×2 (09:38→21:25)
[2021-01-02] MEDS: POTASSIUM CHLORIDE 20 MEQ PACKET (FOR LIQUID) 40 MEQ FEED TUBE (09:38)
[2021-01-02] MEDS: LANSOPRAZOLE ORAL SUSP 30 MG/10 ML ORAL.SUSP FEED TUBE (09:39)
[2021-01-02] MEDS: SERTRALINE HCL 50 MG TABLET FEED TUBE (09:40)
[2021-01-02] MEDS: ONDANSETRON INJ 4 MG/2 ML VIAL IV PUSH ×2 (09:44→22:35)
--- NOTE | 2021-01-02 10:00 | PC.NURSE ---
Discussed removing O2 and trying to wean. Patient shook her head no . Asked patient if she wanted to leave her O2 on for awhile longer and she nodded yes . O2 left on for now. Will decrease to 1 liter for now at 1100 and try to remove at 1200 if patient tolerates.
--- NOTE | 2021-01-02 10:00 | PM.IMPN ---
Progress Note: A&P Assessment and Plan (1) Nausea & vomiting: Code(s): R11.2 - Nausea with vomiting, unspecified Status: Acute Assessment and Plan: Intermittent -differential includes gastric residuals, gastritis or gastroenteritis -will start Lansoprazole, consider adding Carafate if her abdominal pain continues -no etiology on CT -consider GI consult if the patient continues to have nausea although she is pretty adamant she does not want an EGD -I spoke with than dietitian who recommends slowly adding back her tube feedings. I am going to keep her on her 100 cc bolus q.6. At home she takes 300 cc q.6. We will watch residuals. -consider gastric emptying study, daughter unsure if this has been done in the past. We will see how the residuals are with the feedings. -continue IV fluids, monitor for fluid overload (2) Abnormal urinalysis: Code(s): R82.90 - Unspecified abnormal findings in urine Status: Acute Assessment and Plan: Appears to be contaminant with many squamous cells on the UA -monitor for signs of infection, no antibiotics at this time -will obtain cath urine as urine culture which appeared to be contaminant is growing multiple eat organisms (3) ALS (amyotrophic lateral sclerosis): Code(s): G12.21 - Amyotrophic lateral sclerosis Status: Acute Assessment and Plan: Relatively new diagnosis late last year and her G-tube was placed in October -continue home medications -patient primarily communicates through texting -BiPAP at night at bedside -sees [facility] (4) Gastrostomy tube in place: Code(s): Z93.1 - Gastrostomy status Status: Acute Assessment and Plan: No apparent problems on exam or CT (5) Acute hypokalemia: Code(s): E87.6 - Hypokalemia Status: Acute Assessment and Plan: Resolving with supplementation but slightly low today 3.2 -replaced again today -monitor electrolytes and assess for refeeding syndrome although does not seem likely (6) Anxiety disorder: Code(s): F41.9 - Anxiety disorder, unspecified Status: Acute Assessment and Plan: Continue home medications (7) Anemia: Code(s): D64.9 - Anemia, unspecified Status: Acute Assessment and Plan: Hemoglobin down to 9.8 today which is likely hemodilutional because she was dehydrated on admission -no signs of bleeding -will obtain another hemoglobin at noon to ensure it is stable (8) Acute respiratory failure with hypoxia: Code(s): J96.01 - Acute respiratory failure with hypoxia Status: Acute Assessment and Plan: Patient was placed on oxygen on admission for unclear reasons. We will wean this. Time Spent With Patient Time with patient: 25 - 35 minutes Subjective Date/time seen: 01/02/21 10:00 Interval history: Pt is a 70-year-old female here for nausea and vomiting. Patient is able to take some feedings overnight with no residuals but this morning did not want any feedings because she felt nauseated and her stomach hurt. Her 1st feeding was skipped and they are going to try to do the 2nd feeding after Zofran and PPI are given. Patient denies chest pain, shortness of breath, fevers, chills or diarrhea. She says she feels stronger yesterday. She really does not want a EGD if she does not have to have 1. Review of Systems Review of Systems: All systems reviewed & are unremarkable except as noted in HPI and below Exam Narrative: Exam Narrative: General: Chronically ill patient resting comfortably in bed in no acute distress HEENT: Dry mucous membranes, tongue fasciculations Neck: Supple Resp: CTA Heart: RRR with no murmurs. Telemetry shows occasional PVCs Abd: Soft, nontender. No pain to palpation. Positive bowel sounds. G-tube in place without erythema Skin: Warm and dry Extremities: No swelling, erythema or pain to palpation Neuro: Al
[2021-01-02 12:15] LABS: Hematocrit 35.5 % (37.0-47.0); Hemoglobin 11.3 g/dL (12.0-15.0)
[2021-01-02 13:33] LABS: Add Urine Microscopic? YES; Appearance Urine Cloudy (Clear); Bacteria Urine Trace /hpf; Bilirubin Urine Negative (Negative); Blood Urine Negative (Negative); Color Urine Yellow (Yellow); Glucose Urine UA Negative (Negative); Ketones Urine Negative (Negative); Leukocyte Esterase Ur Negative LEU/UL (Negative); Mucus Urine Rare /lpf; Nitrate Urine Negative (Negative); Protein Urine Negative (Negative); RBC Urine 0-2 /hpf (0-2); Squamous Epithelial Cell Urine Rare /hpf (Few); Urobilinogen Urine Negative mg/dL (<2.0); WBC Urine 0-3 /hpf
[2021-01-02 13:34] LABS: Specific Grav Ur 1.035 (1.001-1.035)
[2021-01-02] MEDS: SODIUM CHLORIDE 0.9% IV 1,000 ML 60 ML IV CONT (13:44)
--- NOTE | 2021-01-02 22:58 | ECG_ITS ---
Measurements Intervals [place] Rate: 108 P: 27 [place]: 137 QRS: -6 QRSD: 96 T: 17 QT: 342 QTc: 459 Interpretive Statements SINUS TACHYCARDIA BORDERLINE R WAVE PROGRESSION, ANTERIOR LEADS BORDERLINE T WAVE ABNORMALITY- INFERIOR LEADS BASELINE ARTIFACT- I, II, III, AVR, AVL, AVF, V1-V6 ABNORMAL ECG Electronically Signed On 01-03-2021 7:11:47 CDT by Hayden Ramirez D.O.
--- NOTE | 2021-01-02 23:01 | PC.NURSE ---
CALLED INTO ROOM PT C/O CHEST PAIN RATING IT 7, VITAL SIGNS CHARTED AND CALLED TO AMANDA WINTERS NP. ORDERS RECEIVED
[2021-01-02 23:47] LABS: Troponin I 0.024 ng/mL (0.000-0.034)
--- NOTE | 2021-01-02 23:53 | PC.NURSE ---
PT STATES CHEST PAIN MUCH BETTER, TROPS, EKG AND CHEST X-RAY CALLED TO AMANDA WINTERS STUDENT OUTREACH COORDINATOR
[2021-01-03 02:17] VITALS: PULSE 102; RESP 24; O2SAT 94
[2021-01-03 02:33] VITALS: PULSE 97
[2021-01-03] MEDS: ONDANSETRON INJ 4 MG/2 ML VIAL IV PUSH ×2 (03:47→08:55)
--- NOTE | 2021-01-03 04:59 | PC.NURSE ---
PT BECAME NAUSEATED AND DRY HEAVING WITHIN MINUTES AFTER BOLUS FEEDING
[2021-01-03 05:04] VITALS: BP 125/69; PULSE 114; RESP 16; TEMP 36.6; O2SAT 99
[2021-01-03 06:04] LABS: Hematocrit 31.7 % (37.0-47.0); Hemoglobin 10.5 g/dL (12.0-15.0); Mean Corpuscular HGB Conc 33.1 g/dl (32-36); Mean Corpuscular Hemoglobin 32.9 pg (26-34); Mean Corpuscular Volume 99.4 fl (80-100); Mean Platelet Volume 9.6 fl (7.4-10.4); Platelet Count Result 265 k/mm3 (150-375); Red Blood Count 3.19 M/mm3 (4.2-5.4); White Blood Count 7.1 K/mm3 (4.5-10.0)
[2021-01-03 06:20] LABS: Anion Gap 2 mmol/L (8-16); Blood Urea Nitrogen 21 mg/dL (7-17); Calcium 8.3 mg/dL (8.4-10.2); Carbon Dioxide 35 mmol/L (22-30); Chloride 101 mmol/L (98-107); Estimated CRCL calculation 43 ml/min; Estimated Glomerular Filt Rate > 60; Glucose 149 mg/dL (65-105); Magnesium 1.8 mg/dL (1.6-2.3); Phosphorus 2.1 mg/dL (2.5-4.5); Potassium 3.3 mmol/L (3.4-5.0); Sodium 138 mmol/L (137-145)
[2021-01-03] MEDS: SODIUM CHLORIDE 0.9% IV 1,000 ML 60 ML IV CONT (06:34)
[2021-01-03] MEDS: LANSOPRAZOLE ORAL SUSP 30 MG/10 ML ORAL.SUSP FEED TUBE (06:34)
[2021-01-03 08:00] VITALS: O2SAT 94
[2021-01-03 08:30] VITALS: O2SAT 90; O2SAT 94
[2021-01-03] MEDS: POTASSIUM CHLORIDE 20 MEQ PACKET (FOR LIQUID) 40 MEQ FEED TUBE (08:37)
[2021-01-03] MEDS: levETIRAcetam ORAL SOL 500 MG/5 ML UDC FEED TUBE (08:37)
[2021-01-03] MEDS: SERTRALINE HCL 50 MG TABLET FEED TUBE (08:38)
--- NOTE | 2021-01-03 10:06 | PM.IMPN ---
Progress Note: A&P Assessment and Plan (1) Nausea & vomiting: Code(s): R11.2 - Nausea with vomiting, unspecified Status: Acute Assessment and Plan: Intermittent. Another episode today. Differential includes gastric residuals, gastritis or gastroenteritis. No etiology on CT. Patient refused GI consultation for further assistance for med management, and wished to discuss hospice with daughter. Daughter aware and will visit with patient today. will start Lansoprazole, consider adding Carafate if her abdominal pain continues consider GI consult if the patient continues to have nausea although she is pretty adamant she does not want an EGD Previous provider discussed with dietitian who recommends slowly adding back her tube feedings. I am going to keep her on her 100 cc bolus q.6. At home she takes 300 cc q.6. We will watch residuals. consider gastric emptying study, although patient reluctant for further imaging. Daughter unsure if this has been done in the past. We will see how the residuals are with the feedings. continue IV fluids, monitor for fluid overload (2) Abnormal urinalysis: Code(s): R82.90 - Unspecified abnormal findings in urine Status: Acute Assessment and Plan: Appears to be contaminant with many squamous cells on the UA. UCx growing multiple organisms monitor for signs of infection, no antibiotics at this time (3) ALS (amyotrophic lateral sclerosis): Code(s): G12.21 - Amyotrophic lateral sclerosis Status: Acute Assessment and Plan: Relatively new diagnosis late last year and her G-tube was placed in October. Patient primarily communicates through texting continue home medications BiPAP at night at bedside sees [facility] CC following for possible hospice (4) Gastrostomy tube in place: Code(s): Z93.1 - Gastrostomy status Status: Acute Assessment and Plan: No apparent problems on exam or CT (5) Acute hypokalemia: Code(s): E87.6 - Hypokalemia Status: Acute Assessment and Plan: Resolving with supplementation but slightly low today 3.3 replaced again today monitor electrolytes and assess for refeeding syndrome although does not seem likely (6) Anxiety disorder: Code(s): F41.9 - Anxiety disorder, unspecified Status: Acute Assessment and Plan: Continue home medications (7) Anemia: Code(s): D64.9 - Anemia, unspecified Status: Acute Assessment and Plan: Hemoglobin down to 10.5 today which is likely hemodilutional because she was dehydrated on admission. No s/sx of acute blood loss Monitor CBC tomorrow (8) Acute respiratory failure with hypoxia: Code(s): J96.01 - Acute respiratory failure with hypoxia Status: Acute Assessment and Plan: Patient was placed on oxygen on admission for unclear reasons. Possibly secondary to ALS, atelectasis, poor mobilization We will wean O2 Subjective Date/time seen: 01/03/21 10:06 Interval history: Patient is a 70 year old female with recent diagnosis of ALS (has g-tube since 10/2020), CKDIV, anemia of chronic disease, HTN (no longer taking medication), hypothyroidism (no longer taking medication) among other comorbid conditions who is seen in follow up for nausea/vomiting. Received phone call from nursing this am stating patient had n/v this morning after RN flushed 30ccs of saline. At bedside, patient appears comfortable, no longer vomiting, but endorses nausea still. When inquiring if she would like a GI consultation for additional assistance in medical management, she shakes her head no
--- NOTE | 2021-01-03 10:25 | PC.NURSE ---
Patient refused 1000 bolus tube feeding. She shook her head no when I asked if she was ready for me to start her 1000 feed.
[2021-01-03 14:00] VITALS: BP 118/74; PULSE 95; RESP 18; TEMP 36.3; O2SAT 100
--- NOTE | 2021-01-03 16:43 | PC.NURSE ---
Patient refused 1600 feeding.
[2021-01-03] MEDS: MORPHINE SULFATE (*CRX) 2 MG/ML INJ IV PUSH (17:05)
--- NOTE | 2021-01-04 06:54 | PM.DS ---
DS: Admitting Diagnosis Admitting Diagnosis Admitting Diagnosis: persistent N/V; ALS DS: Discharge Diagnosis Discharge Diagnosis (1) Nausea & vomiting: Code(s): R11.2 - Nausea with vomiting, unspecified Status: Acute Assessment and Plan: Intermittent. Another episode today. Differential includes gastric residuals, gastritis or gastroenteritis. No etiology on CT. Patient refused GI consultation for further assistance for med management, and wished to discuss hospice with daughter. Daughter aware and will visit with patient today. Patient and family met with [facility]. Consents signed on 01/03/21. Patient discharged on 01/03. Further care per [facility] (2) Abnormal urinalysis: Code(s): R82.90 - Unspecified abnormal findings in urine Status: Acute Assessment and Plan: Appears to be contaminant with many squamous cells on the UA. UCx growing multiple organisms Further care per [facility] (3) ALS (amyotrophic lateral sclerosis): Code(s): G12.21 - Amyotrophic lateral sclerosis Status: Acute Assessment and Plan: Relatively new diagnosis late last year and her G-tube was placed in October. Patient primarily communicates through texting Further care per [facility] (4) Gastrostomy tube in place: Code(s): Z93.1 - Gastrostomy status Status: Acute Assessment and Plan: No apparent problems on exam or CT (5) Acute hypokalemia: Code(s): E87.6 - Hypokalemia Status: Acute Assessment and Plan: Resolving with supplementation but slightly low today 3.3 Further care per Hospice (6) Anxiety disorder: Code(s): F41.9 - Anxiety disorder, unspecified Status: Acute Assessment and Plan: Further care per Hospice (7) Anemia: Code(s): D64.9 - Anemia, unspecified Status: Acute Assessment and Plan: Hemoglobin down to 10.5 today which is likely hemodilutional because she was dehydrated on admission. No s/sx of acute blood loss Further care per Hospice (8) Acute respiratory failure with hypoxia: Code(s): J96.01 - Acute respiratory failure with hypoxia Status: Acute Assessment and Plan: Patient was placed on oxygen on admission for unclear reasons. Possibly secondary to ALS, atelectasis, poor mobilization Further care per Hospice DS: Summary Hospital Course Reason for hospitalization: N/V, ALS Hospital Course: Date of arrival: 01/01/21 Date of discharge: 01/03/21 at roughly 21:30 Patient is a 70 year old female with recent diagnosis of ALS (has g-tube since 10/2020), CKDIV, anemia of chronic disease, HTN (no longer taking medication), hypothyroidism (no longer taking medication) among other comorbid conditions who presented emergency room on 01/01 for nausea and vomiting. While in the ED, CT abd/pelvis was grossly unremarkable. UA was suspicious for UTI although many squamous epith cells were found; no antibiotics were initiated in ED. Patient admitted to the hospitalist service under this setting for further management/treatment of persistent N/V on her tube feeds. Please see H&P for further details. After admission, Patient continued to have nausea and vomiting during stay. Dietitian was consulted and recommended resuming feeds at 100 ccs Q6hr (reduced from her normal 300ccs Q6hr). She continued this with slow progress. UCx returned growing multiple organisms; one dose of Rocephin given, but was discontinued as this was likely contaminate. She continued to have nausea and vomiting on 01/03. She then requested to speak with daughter and CC about hospice. Patient and daughter met with CC and
== END 2021-01-03 19:45 | disposition hospice, inpatient (51) ==
LOC: ANHED 22:37 → ANH2MED 01-01 02:04
PROVIDERS: Emergency Medicine; Nurse Practitioner; Physician Assistant; Admitting Provider Internal Medicine; Emergency Provider Emergency Medicine; PCP Family Medicine; Visit Provider Physician Assistant
DX: R11.2 Nausea with vomiting, unspecified (principal); G12.21 Amyotrophic lateral sclerosis; R82.90 Unspecified abnormal findings in urine; Z93.1 Gastrostomy status; E87.6 Hypokalemia; J96.01 Acute respiratory failure with hypoxia; I12.9 Hypertensive chronic kidney disease with stage 1 through stage 4 chronic kidney disease, or unspecified chronic kidney disease; N18.4 Chronic kidney disease, stage 4 (severe); D63.1 Anemia in chronic kidney disease; E03.9 Hypothyroidism, unspecified; E78.2 Mixed hyperlipidemia; R73.03 Prediabetes; G40.909 Epilepsy, unspecified, not intractable, without status epilepticus; M19.90 Unspecified osteoarthritis, unspecified site; F41.1 Generalized anxiety disorder
CPT/HCPCS: 36415; 71045; 74177; 80048; 80053; 81001; 83690; 83735; 84100; 84484; 85014; 85018; 85025; 85027; 87077; 87086; 87088; 87147; 87181; 87186; 93005; 96361; 96365; 96374; 96375; 96376; 99285; A9270; G0378; J0131; J0696; J2060; J2270; J2405; J3480; J7030; Q9967

== ENCOUNTER 2021-01-03 19:30 | HOS | payer OTHER, SELFPAY ==
[2021-01-03] MEDS: MORPHINE SULFATE INJ (*CRX) 50 MG in SODIUM CHLORIDE 0.9% IV 95 ML IV CONT (21:20)
--- NOTE | 2021-01-03 21:38 | PC.NURSE ---
This patient, Babita Olivarez, was admitted to Medical Room 247-. Patient/family oriented to hospital policies and general routines including ID bracelet, bed and alarms, visiting hours, pain management, procedures, bathroom and other care routines, personal items, smoking policy, room service/diet, and visiting hours. Information on how to activate the Rapid Response Team has been discussed. Patient/Family are encouraged to report perceived risks to care and to ask questions if they do not understand what they are told or what they should do. Pt was admitted to [facility] and Morphine drip started at 1mg hour.
[2021-01-03] MEDS: PROCHLORPERAZINE EDISYLATE 10 MG/2 ML VIAL IV PUSH (22:54)
[2021-01-03] MEDS: FAMOTIDINE 20 MG/2 ML VIAL IV PUSH (22:55)
[2021-01-03] MEDS: LORazepam INJ (*CRX) 2 MG/ML VIAL 1 MG IV PUSH (23:55)
[2021-01-04] MEDS: PROCHLORPERAZINE EDISYLATE 10 MG/2 ML VIAL IV PUSH ×4 (06:07→23:49)
[2021-01-04] MEDS: LORazepam INJ (*CRX) 2 MG/ML VIAL 1 MG IV PUSH ×4 (06:14→23:54)
[2021-01-04 08:00] VITALS: O2SAT 94
[2021-01-04] MEDS: FAMOTIDINE 20 MG/2 ML VIAL IV PUSH ×2 (09:35→21:02)
[2021-01-04] MEDS: MORPHINE SULFATE (*CRX) 2 MG/ML INJ IV PUSH ×4 (09:36→23:53)
[2021-01-04] MEDS: PROMETHAZINE HCL 25 MG/ML AMPUL 12.5 MG IV PUSH (09:36)
--- NOTE | 2021-01-04 14:22 | PC.NURSE ---
On 01/04/21, the student, [Celio Longo ], provided care and completed [facility] documentation on this patient. I have reviewed the student's documentation and agree with the findings.
--- NOTE | 2021-01-04 20:18 | PM.IMHP ---
H&P: HPI History of Present Illness Date/Time: 01/04/21 20:18 Chief Complaint: uncontrolled nausea vomiting and associated pain and anxiety Narrative: this unfortunate 70-year-old female was living at home with family 6 months ago. She was alert and oriented to person place and time and able to make needs known incontinent of both bowel and bladder. She had a fair appetite required minimal assistance with ADLs. Palliative performance score was 60. She was diagnosed with ALS a little over a year ago. Over the last 6 months she has been gradually declining. She was admitted [facility] on January 01 due to nausea vomiting with some associated abdominal discomfortthat had persisted for 2 days. She was unable to tolerate her tube feeding. She refused any GI workup and refused further tube feedings. She was refusing her medications as well. She was having discomfort and anxiety along with the nausea and vomiting. Because of her ins stage ALS and her ongoing symptoms and her refusal for further evaluation and treatment she and her daughter opted for inpatient hospice care for symptom management. Review of Systems Review of Systems: ROS unobtainable: Yes unobtainable due to medical condition PMFSH Past Medical History Medical History ALS (amyotrophic lateral sclerosis) GI tube dependent due to ALS. Anemia due to chronic renal failure treated with erythropoietin, stage 4 (severe) Anxiety disorder Chronic renal failure, stage 4 (severe) Essential hypertension Hypothyroidism (acquired) Mixed hyperlipidemia Morbid (severe) obesity due to excess calories Prediabetes Primary osteoarthritis, unspecified site Seasonal allergic rhinitis due to pollen Seizure disorder Surgical History Surgical History History of right knee joint replacement S/P percutaneous endoscopic gastrostomy (PEG) tube placement Family History Family History Father Family history of glaucoma Family history of cardiovascular disease Malignant neoplasm of prostate Other Depression Social History Social History Social History: Patient lives with daughter, Tiffanie. She wishes to be a DNR. Her PCP is Dr. Sandrita De Jesus Smoking status: Never smoker Second hand tobacco smoke exposure: Yes Alcohol intake: never Substance use: never Substance use type: does not use Gender identity (if verbalized by the patient): Female Spiritual care concerns: No Meds Home Medications and Allergies Home Medications Medication Instructions Recorded Confirmed Type levetiracetam 500 mg tablet 500 mg PO Q12H #180 tablet 08/13/20 01/01/21 Rx sertraline 50 mg tablet 50 mg PO DAILY #90 tablet 08/21/20 01/01/21 Rx hydrochlorothiazide 25 mg FEEDING TUBE DAILY 12/02/20 01/01/21 History riluzole 50 mg FEEDING TUBE BID 12/02/20 01/01/21 History ondansetron 4 mg disintegrating 4 mg PO Q8H PRN 12/25/20 01/01/21 History tablet atropine 2 drp PO QID PRN 01/01/21 01/01/21 History Allergies Allergy/AdvReac Type Severity Reaction Status Date / Time No Known Allergies Allergy Verified 01/01/21 03:18 Vital Signs Vital Signs - 24 hr 01/04/21 08:00 Pulse Oximetry 94 Exam Narrative: Exam Narrative: HEENT: pharyngeal mucosa pink and intact NECK: No JVD CHEST: Clear to auscultation. Normal effort. HEART: NL S1/S2, regular, no murmur ABDOMEN: BS+, soft, nontender, no mass, no bruits EXTREMITIES: No cyanosis, edema, or clubbing NEUROLOGIC: CN intact and symmetric to inspection. MUSCULOSKELETAL: Tone symmetric. PSYCH: Drowsy, arouses to voice Assessment and Plan Assessment and plan (1) Palliative care by specialist: Code(s): Z51.5 - Encounter for palliative care Status: Acute Assessment and Plan: Meet i
[2021-01-04] MEDS: MORPHINE SULFATE INJ (*CRX) 50 MG in SODIUM CHLORIDE 0.9% IV 95 ML IV CONT (23:53)
--- NOTE | 2021-01-05 03:41 | PC.NURSE ---
Spoke with [facility] pt expiration time 0330. Spoke with family regarding pt expiring this morning at 0330. Family are coming. group supervisor yard notified. group supervisor yard calling Anatoly Ignacio and Juan Antonio home.
--- NOTE | 2021-01-05 03:50 | PC.NURSE ---
Spoke with Marva with [facility] she is calling pt daughter to see if she wanted her to meet her at the hospital.
--- NOTE | 2021-01-05 04:31 | PC.NURSE ---
Family is on floor with patient.
--- NOTE | 2021-01-07 09:41 | P.PNIM_ITS ---
Progress Note: A&P Assessment and Plan (1) Palliative care by specialist: Code(s): Z51.5 - Encounter for palliative care Status: Acute Assessment and Plan: * Meet inpatient hospice criteria due to uncontrolled discomfort and nausea with emesis and associated anxiety all requiring intravenous medication for control, including continuous IV morphine * Scheduled prochlorperazine 10mg IV q 6h * PRN IV promethazine * PRN IV lorazepam * Remainder of palliative regimen as ordered (2) Acute respiratory failure with hypoxia: Code(s): J96.01 - Acute respiratory failure with hypoxia Status: Acute (3) Anemia: Qualifiers: Anemia type: unspecified type Qualified Code(s): D64.9 - Anemia, unspecified Code(s): D64.9 - Anemia, unspecified Status: Acute (4) ALS (amyotrophic lateral sclerosis): Code(s): G12.21 - Amyotrophic lateral sclerosis Status: Acute (5) Seizure disorder: Code(s): G40.909 - Epilepsy, unspecified, not intractable, without status epilepticus Status: Acute (6) Anxiety disorder: Qualifiers: Anxiety disorder type: unspecified anxiety disorder Qualified Code(s): F41.9 - Anxiety disorder, unspecified Code(s): F41.9 - Anxiety disorder, unspecified Status: Acute (7) Essential hypertension: Code(s): I10 - Essential (primary) hypertension Status: Acute (8) Obstructive sleep apnea (adult) (pediatric): Code(s): G47.33 - Obstructive sleep apnea (adult) (pediatric) Status: Acute Subjective Date/time seen: 01/05/2021 14:15 Interval history: 01/05: Remains comfortable on current regimen. Review of Systems Review of Systems: ROS unobtainable: Yes unobtainable due to medical condition Exam Narrative: Exam Narrative: Resting comfortably in NAD. Objective Data Intake/Output Intake/Output: Intake & Output 01/04/21 01/05/21 01/06/21 01/07/21 23:59 23:59 23:59 23:59 Intake Total 100 Balance 100
--- NOTE | 2021-01-07 09:45 | P.DN_ITS ---
Discharge Sum: Prov Provider Primary care physician: Sandrita De Jesus MD Admitting provider: Moo Warren MD Discharge Sum: Diag Contributing Factors (1) Acute respiratory failure with hypoxia: (2) Anemia: (3) ALS (amyotrophic lateral sclerosis): (4) Seizure disorder: (5) Anxiety disorder: (6) Essential hypertension: (7) Obstructive sleep apnea (adult) (pediatric): Discharge Sum: Summary Date and Time Date of admission: 01/03/21 19:48 Summary Details: 70-year-old female was living at home with family 6 months ago. She was alert and oriented to person place and time and able to make needs known incontinent of both bowel and bladder. She had a fair appetite required minimal assistance with ADLs. Palliative performance score was 60. She was diagnosed with ALS a little over a year ago. Over the last 6 months she has been gradually declining. She was admitted [facility] on January 01 due to nausea vomiting with some associated abdominal discomfortthat had persisted for 2 days. She was unable to tolerate her tube feeding. She refused any GI workup and refused further tube feedings. She was refusing her medications as well. She was having discomfort and anxiety along with the nausea and vomiting. Because of her ins stage ALS and her ongoing symptoms and her refusal for further evaluation and treatment she and her daughter opted for inpatient hospice care for symptom management. Medications were titrated to comfort and she peacefully. Additional Data Attending physician: Moo Warren MD
== END 2021-01-05 03:30 | disposition expired | DRG 189 ==
PROVIDERS: Admitting Provider Internal Medicine; PCP Family Medicine; Visit Provider Internal Medicine
DX: J96.01 Acute respiratory failure with hypoxia (principal); G12.21 Amyotrophic lateral sclerosis; D64.9 Anemia, unspecified; G40.909 Epilepsy, unspecified, not intractable, without status epilepticus; F41.9 Anxiety disorder, unspecified; I10 Essential (primary) hypertension; G47.33 Obstructive sleep apnea (adult) (pediatric); Z51.5 Encounter for palliative care
CPT/HCPCS: A9270; J0780; J2060; J2270; J2550